=== PATIENT | male | born 1990 | race Two or more races ===

== ENCOUNTER 2017-07-17 23:38 | Emergency (ER) | payer SELFPAY ==
[~2017-07-17] VITALS: Ht 160 cm; Wt 75.7 kg
[~2017-07-17 23:38] MED LIST: Lidocaine 1% 10mg/ml/Epi 0.005mg/ml 30ml vial INJ ONE; NKM; UNK MED
[2017-07-18] MEDS ORDERED: Lidocaine 1% 10mg/ml/Epi 0.005mg/ml 10ml vial INJ ONE
[2017-07-18] MEDS ORDERED: Lidocaine 2% 20mg/ml/Epi 0.005mg/ml 20ml vial INJ ONE
[2017-07-18] MEDS ORDERED: ceFAZolin 1gm/50ml Premix 50 ML IV ONE
[2017-07-18] MEDS ORDERED: Betadine 4oz Bottle TOPIC ONE (00:08)
[2017-07-18 00:13] VITALS: BP 99/67
[2017-07-18 00:22] LABS: EOSINOPHILS % (AUTO) 1.4 % (0.0-3.0); LYMPHOCYTES % (AUTO) 41.2 % (20.0-45.0); MEAN CORPUSCULAR HEMOGLOBIN 34.5 PG (27.0-31.0); MEAN CORPUSCULAR VOLUME 96 FL (80-99); MEAN PLATELET VOLUME 6.8 FL (6.5-10.1); MONOCYTES % (AUTO) 8.2 % (1.0-10.0); NEUTROPHILS % (AUTO) 48.2 % (45.0-75.0); PLATELET COUNT 334 K/UL (150-450); RED BLOOD COUNT 4.65 M/UL (4.70-6.10); RED CELL DISTRIBUTION WIDTH 12.1 % (11.6-14.8); WHITE BLOOD COUNT 9.9 K/UL (4.8-10.8)
[2017-07-18] MEDS ORDERED: Surgicel 4in x 8in TOPIC ONE ×3 (00:26→01:15)
[2017-07-18] MEDS ORDERED: ceFAZolin sod 1 GM in NS 55 ML IVPB ONE (00:30)
[2017-07-18 00:36] LABS: ANION GAP 19 (5-15); CARBON DIOXIDE 21 mEQ/L (20-30); CHLORIDE 100 mEQ/L (98-107); CREATININE 1.1 mg/dL (0.7-1.2); GLOMERULAR FILTRATION RATE > 60 mL/min (>60); HEMOLYSIS 10; POTASSIUM 3.9 mEQ/L (3.4-4.9); SODIUM 140 mEQ/L (135-145)
[2017-07-18 00:50] VITALS: BP 107/60
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
[2017-07-18 01:57] VITALS: BP 106/59
[2017-07-18 02:16] VITALS: BP 106/59
== END 2017-07-18 02:09 | disposition short-term general hospital (02) ==
LOC: EDBD 23:38 → EMR 23:55
DX: S66.921A Laceration of unspecified muscle, fascia and tendon at wrist and hand level, right hand, initial encounter (principal); Y08.89XA Assault by other specified means, initial encounter; Y92.89 Other specified places as the place of occurrence of the external cause
CPT/HCPCS: 36415; 80048; 85025; 86850; 86900; 86901; 96365; 96372; 96375; 99285; J0690; 99284; A4246